=== PATIENT | female | born 1960 | race Two or more races ===

== ENCOUNTER 2023-09-24 05:46 | Inpatient (IN) | payer MEDICAID, OTHER ==
[~2023-09-24] VITALS: Ht 170.2 cm; Wt 45.9 kg
[2023-09-24 08:00] VITALS: PULSE 81; RESP 17; O2SAT 95
[2023-09-24] MEDS: MORPHINE SULFATE 4 MG/ML SYR/VIAL IV ONE ×2 (08:35→13:00)
[2023-09-24] MEDS: ONDANSETRON HCL 4 MG/2 ML VIAL IV ONE ×2 (08:35→13:00)
[2023-09-24] MEDS ORDERED: URSO300C2 PO (14:27)
[2023-09-24] MEDS ORDERED: TACR0.5C3 PO (14:27)
[2023-09-24] MEDS ORDERED: BETA10TA2 PO (14:27)
[2023-09-24] MEDS ORDERED: ATOR10TA52 PO (14:27)
[2023-09-24] MEDS ORDERED: DEXTROSE (50%) 50ML SYRG IV PRN (14:30)
[2023-09-24] MEDS ORDERED: DOCUSATE SOD 100 MG CAP PO PRN (14:30)
[2023-09-24] MEDS ORDERED: ACETAMINOPHEN 325 MG TAB PO PRN (14:30)
[2023-09-24] MEDS ORDERED: hydrALAZINE HCL 20 MG/ML VL IV PRN (15:15)
[2023-09-24] MEDS: ACCU-CHEK COMFORT CURVE STRIP VI SCH (17:00)
[2023-09-24] MEDS: InsuLIN REG 1unit/0.01ml Soln (100units/ml) SC SCH (17:00)
[2023-09-24 20:00] VITALS: PULSE 81; RESP 17; O2SAT 95
[2023-09-24] MEDS ORDERED: TACROLIMUS 0.5 MG CAP PO SCH (22:00)
[2023-09-24] MEDS: ATORVASTATIN 20 MG TAB PO SCH (22:00)
[2023-09-24] MEDS: URSODIOL 300 MG CAP PO SCH (22:00)
[2023-09-24] MEDS: MORPHINE SULFATE INJ 2 MG/ml SYRG IV PRN (22:21)
[2023-09-24 22:22] VITALS: BP 151/62; PULSE 89; RESP 18; TEMP 98.7; O2SAT 97
[2023-09-24] MEDS: ONDANSETRON HCL 4 MG/2 ML VIAL IV PRN (22:35)
[2023-09-25] VITALS (9 sets, daily range): BP systolic 114–151; BP diastolic 56–73; PULSE 75–89; RESP 16–20; TEMP 98–98.7; O2SAT 96–100
[2023-09-25] MEDS ORDERED: MULT-1018 PO (00:07)
[2023-09-25] MEDS ORDERED: EMPA1TAB3 PO (00:07)
[2023-09-25] MEDS ORDERED: CHOL20002 PO (00:07)
[2023-09-25] MEDS ORDERED: IPRIH INH (00:07)
[2023-09-25] MEDS ORDERED: LEVA1AER INH (00:07)
[2023-09-25] MEDS ORDERED: GAB100C PO (00:07)
[2023-09-25] MEDS ORDERED: SIME80CH49 PO (00:07)
[2023-09-25] MEDS: HYDROcodone-ACET 5/325MG TAB PO PRN (00:48)
[2023-09-25] MEDS: TACROLIMUS 0.5 MG CAP PO SCH ×2 (00:49→18:00)
[2023-09-25 06:20] LABS: Alanine Aminotransferase 17 U/L (7-40); Albumin 3.9 g/dL (3.2-4.8); Alkaline Phosphatase 94 U/L (46-116); Anion Gap 10 (5-15); Aspartate Aminotransferase 16 U/L (13-40); BUN/Creatinine Ratio 18.3 (10.0-20.0); Bilirubin, Total 1.9 mg/dL (0.2-1.0); Blood Urea Nitrogen 13 mg/dL (9-23); Calcium 9.2 mg/dL (8.5-10.1); Carbon Dioxide 23 mmol/L (20-30); Chloride 102 mmol/L (98-107); Glucose 102 mg/dL (74-106); Potassium 4.1 mmol/L (3.5-5.1); Sodium 135 mmol/L (136-145)
[2023-09-25 06:21] LABS: Basophils # (auto) 0 10 ^3/uL (0-0.2); Basophils % (auto) 0.4 % (0.0-2.0); Eosinophils # (auto) 0.1 10 ^3/uL (0-0.8); Eosinophils % (auto) 1.4 % (0.0-7.0); Hematocrit 40.1 % (36.0-46.0); Hemoglobin 14.1 g/dL (12.2-16.2); Lymphocytes # (auto) 1.6 10 ^3/uL (0.4-5.4); Lymphocytes % (auto) 19.9 % (10.0-50.0); Mean Corpuscular Hemoglobin 32.2 pg (28.0-32.0); Mean Corpuscular Hgb Conc. 35.2 g/dL (32.0-36.0); Mean Corpuscular Volume 91.3 fL (80.0-100.0); Monocytes # (auto) 0.7 10 ^3/uL (0-1.3); Monocytes % (auto) 8.9 % (0.0-12.0); Neutrophils # (auto) 5.5 10 ^3/uL (1.6-8.6); Neutrophils % (auto) 69.4 % (37.0-80.0); Nucleated Red Blood Cells % 0.2 %; Red Blood Cells 4.39 10^6/uL (4.0-5.20); Red Cell Distribution Width 13.2 % (11.8-14.3); White Blood Cell 7.9 10^3/uL (4.4-10.8)
[2023-09-25 06:38] LABS: INR 1.13 (0.9-1.15); Partial Thromboplastin Time 29.3 SEC (24.5-34.5); Prothrombin Time 11.9 sec (9.3-11.8)
[2023-09-25] MEDS: PANTOPRAZOLE 40 MG TAB PO SCH (07:20)
[2023-09-25] MEDS ORDERED: PATIENTS OWN MEDICATION (Atorvastatin Calcium 1 TAB) PO SCH (10:00)
[2023-09-25] MEDS: GABAPENTIN 100 MG CAP PO SCH (12:23)
[2023-09-25 15:41] LABS: Urine Bacteria None Seen /hpf (None Seen)
[2023-09-25 15:48] LABS: Urine Blood Negative /uL (Negative); Urine Clarity Clear (Clear); Urine Color Light-Yellow (Yellow); Urine Protein, UAD Negative (Negative); Urine Specific Gravity 1.024 (1.001-1.035); Urine Urobilinogen Normal (Negative); Urine WBC 2 /hpf (0 - 5)
[2023-09-26] VITALS (7 sets, daily range): BP systolic 119–150; BP diastolic 62–74; PULSE 70–87; RESP 16–20; TEMP 36.6; O2SAT 94–97
[2023-09-26 06:28] LABS: Alanine Aminotransferase 14 U/L (7-40); Alkaline Phosphatase 92 U/L (46-116); Anion Gap 9 (5-15); BUN/Creatinine Ratio 23.9 (10.0-20.0); Blood Urea Nitrogen 17 mg/dL (9-23); Calcium 9.4 mg/dL (8.5-10.1); Carbon Dioxide 25 mmol/L (20-30); Chloride 102 mmol/L (98-107); Glucose 124 mg/dL (74-106); Potassium 4.2 mmol/L (3.5-5.1); Sodium 136 mmol/L (136-145)
[2023-09-26 06:29] LABS: Albumin 3.8 g/dL (3.2-4.8); Aspartate Aminotransferase 17 U/L (13-40)
[2023-09-26 06:30] LABS: Bilirubin, Total 1.6 mg/dL (0.2-1.0); Total Protein 7.1 g/dL (5.7-8.2)
[2023-09-26 06:34] LABS: Basophils # (auto) 0.1 10 ^3/uL (0-0.2); Basophils % (auto) 0.8 % (0.0-2.0); Eosinophils # (auto) 0.2 10 ^3/uL (0-0.8); Eosinophils % (auto) 2.1 % (0.0-7.0); Hematocrit 40.6 % (36.0-46.0); Lymphocytes # (auto) 1.5 10 ^3/uL (0.4-5.4); Lymphocytes % (auto) 17.9 % (10.0-50.0); Mean Corpuscular Hemoglobin 31.8 pg (28.0-32.0); Mean Corpuscular Hgb Conc. 34.5 g/dL (32.0-36.0); Mean Corpuscular Volume 92.1 fL (80.0-100.0); Monocytes # (auto) 0.6 10 ^3/uL (0-1.3); Monocytes % (auto) 6.9 % (0.0-12.0); Neutrophils # (auto) 6.2 10 ^3/uL (1.6-8.6); Neutrophils % (auto) 72.3 % (37.0-80.0); Nucleated Red Blood Cells % 0.4 %; Red Blood Cells 4.41 10^6/uL (4.0-5.20); White Blood Cell 8.5 10^3/uL (4.4-10.8)
[2023-09-26] MEDS: TACROLIMUS 0.5 MG CAP PO SCH (07:00)
[2023-09-27] MEDS ORDERED: TACROLIMUS 1 MG CAP PO SCH (07:00)
== END 2023-09-26 21:05 | disposition short-term general hospital (02) | DRG 342 ==
LOC: EDBD 05:46 → ER 05:46 → CENTRAL 14:22 → OVERFLOW 14:22 → CENTRAL 22:06
PROVIDERS: ADMIT Nurse Practitioner Family; ATTEND Internal Medicine
DX: S82.141A Displaced bicondylar fracture of right tibia, initial encounter for closed fracture (principal); Z94.4 Liver transplant status; E11.9 Type 2 diabetes mellitus without complications; E66.9 Obesity, unspecified; Z68.1 Body mass index [BMI] 19.9 or less, adult; Z79.4 Long term (current) use of insulin; Z79.899 Other long term (current) drug therapy; Y08.89XA Assault by other specified means, initial encounter; Y93.89 Activity, other specified; Y92.89 Other specified places as the place of occurrence of the external cause; Y99.8 Other external cause status
CPT/HCPCS: 36415; 72170; 73590; 73700; 80053; 80197; 81001; 82962; 83036; 85025; 85610; 85730; 96374; 96375; 96376; G0378; J1815; J2405